=== PATIENT | male | born 1940 | race Caucasian/White ===

== ENCOUNTER 2023-04-28 11:50 | Outpatient (OUT) | payer OTHER, SELFPAY ==
[2023-04-28 12:45] LABS: Influenza Virus A Antigen Negative; Influenza Virus B Antigen Negative; Internal Control Within Normal Limits; Respiratory Syncytial Virus Not Detected (NOT DETECTE); SARS-CoV-2 Ag NEGATIVE (NEGATIVE)
[2023-04-28 14:59] LABS: SARS-CoV-2 NAA NOT DETECTED (NOT DETECTE)
== END 2023-04-28 11:51 | disposition home or self-care (01) ==
LOC: LAB 11:53
PROVIDERS: PCP Internal Medicine; Visit Provider Internal Medicine
DX: R05.9 Cough, unspecified (principal)
CPT/HCPCS: 87420; 87635; 87804; 87811; U0003

== ENCOUNTER 2024-01-28 12:53 | Outpatient (RCR) | payer OTHER, SELFPAY | END 2024-02-19 13:50 | disposition home or self-care (01) | LOC: PT 12:53 | PROVIDERS: PCP Internal Medicine; Visit Provider Nurse Practitioner Family | DX: M51.36 Other intervertebral disc degeneration, lumbar region (principal) | CPT/HCPCS: 97110; 97161 ==

== ENCOUNTER 2024-06-11 12:54 | Outpatient (OUT) | payer MEDICARE, SELFPAY ==
--- NOTE | 2024-06-11 12:57 | XR_ITS ---
[address] [address] Patient Name: MAURICIO QUIÑONEZ MRN: [id number] date: 1940 Sex: M Assigned Patient Location: [facility] Current Patient Location: Accession/Order Number: [id number] Exam Date: 06/11/2024 13:05 Report Date: 06/12/2024 09:27 At the request of: LINDSEY DUARTE Procedure: XR DEXA axial skeleton EXAMINATION: XR DEXA axial skeleton HISTORY: Osteopenia Of Lumbar Spine COMPARISON: DEXA bone densitometry 05/17/2015 TECHNIQUE: Dual-energy X-ray absorptiometry (DXA) was performed. FINDINGS: SPINE ANALYSIS: Average bone mineral density is 1.323 g/cm2. T-score (standard deviation relative to young adult mean): 0.7 . +8.0% change since prior study. HIP ANALYSIS: Lowest bone mineral density is within the right femoral neck, 0.775 g/cm2. T-score (standard deviation relative to young adult mean): -1.6% change since prior study. . XR/XR DEXA axial skeleton IMPRESSION: World Health Organization Classification: Osteopenia - Moderate Fracture Risk FRAX: Cannot be calculated. Pharmacologic treatment recommendations * No uniform recommendation applies to all patients. Management plans must be individualized. * Consider initiating pharmacologic treatment in postmenopausal women and men >= 50 years of age who have the following: Primary fracture prevention: * T-score <= - 2.5 at the femoral neck, total hip, lumbar spine, 33% radius (some uncertainty with existing data) by DXA. * Low bone mass (osteopenia: T-score between - 1.0 and - 2.5) at the femoral neck or total hip by DXA with a 10-year hip fracture risk >= 3% or a 10-year major osteoporosis-related fracture risk >= 20% (i.e., clinical vertebral, hip, forearm, or proximal humerus) based on the [place]-adapted FRAXregistered model. Secondary fracture prevention: * Fracture of the hip or vertebra regardless of BMD [4, 5]. * Fracture of proximal humerus, pelvis, or distal forearm in persons with low bone mass (osteopenia: T-score between - 1.0 and - 2.5). The decision to treat should be individualized in persons with a fracture of the proximal humerus, pelvis, or distal forearm who do not have osteopenia or low BMD [12, 13]. Eliceo MS, Gladys SL, Veronica KL, Mary EM, Huma KG, AJ, Sandy ES. The clinician's guide to prevention and treatment of osteoporosis. Osteoporos Int. 2021;33(10):1071-3552. doi: 10.1007/w99648-787-72540-a. Epub 2021Dec 13. Erratum in: Osteoporos Int. 2021Mar 14;: PMID: [id number]; PMCID: [id number]. Electronically authenticated by: SHERMAN NOGUERA Date: 06/12/2024 09:27
--- OUTSIDE RECORDS SUMMARY | 2024-06-11 12:57 | XMS_ITS | CCD ---
Author Organization [facility] Care Team Providers Care Business Risk Consultant Name Role Phone Buzz Magana II Primary Care Provider [phone] BUZZ MAGANA Primary Care Physician [phone] DR BUZZ MAGANA Admitting Unavailable FELICIA, DR PORTILLO Attending Unavailable FELICIA, DR PORTILLO Primary Care Unavailable FELICIA, DR PORTILLO Consulting Unavailable MAGANA, DR PORTILLO Admitting Unavailable MAGANA, DR PORTILLO Attending Unavailable MAGANA, DR PORTILLO Primary Care Unavailable FELICIA, DR PORTILLO Consulting Unavailable ZIEBER, DR SHERMAN Bee Consulting Unavailable FELICIA, DR PORTILLO Admitting Unavailable FELICIA, DR PORTILLO Attending Unavailable MAGANA, DR PORTILLO Primary Care Unavailable MAGANA, DR PORTILLO Consulting Unavailable RODRIGUEZ, ASHLEY Consulting Unavailable TrujilloAudra grey Unavailable YANELI BRAGG Attending Unavailable FELTER, YANELI A Attending Unavailable WILLAM, JAYLEN Attending Unavailable FELTER, YANELI A Attending Unavailable FELTER, YANELI A Attending Unavailable WILLAM, JAYLEN Attending Unavailable MAYCO, DONAL Attending Unavailable WILLAM, JAYLEN Referring Unavailable FELTER, YANELI A Attending Unavailable MAGANA, BUZZ Castro Attending Unavailable FELTER, YANELI A Attending Unavailable FELTER, YANELI A Attending Unavailable WILLAM, JAYLEN Attending Unavailable WILLAM, JAYLEN Attending Unavailable WILLAM, JAYLEN Referring Unavailable FELTER, YANELI A Attending Unavailable MAYCO, DONAL Attending Unavailable WILLAM, JAYLEN Referring Unavailable MAGANA, BUZZ Castro Attending Unavailable KINJAL PEREIRA Attending Unavailable Allergies Allergy Classification Reported Allergen(s) Allergy Type Date of Onset Reaction(s) Facility Anti-Epileptic Agents (1 source) carBAMazepine Drug Allergy 3 Other: See Comments [facility] Opioid Agonists (1 source) Codeine Drug Allergy 3 GI Upset [facility] (9 sources) Codeine; Translations: [codeine] Drug Allergy 4 Stomach ache (finding) [facility] (1 source) Codeine Drug Allergy 3 [facility] (1 source) Acetaminophen Drug Allergy 4 Unknown Reaction [facility] (1 source) carBAMazepine Drug Allergy 4 Rash [facility] (1 source) oxyCODONE Drug Allergy 4 Unknown Reaction [facility] Medications Current Medications Medication Drug Class(es) Dates Sig (Normalized) Sig (Original) amitriptyline hydrochloride 25 mg oral tablet (9 sources) Tricyclic Antidepressant Start: 01-30-2021 take 25 mg by mouth once daily at bedtime amitriptyline 25 mg, Oral, Once a day (at bedtime), Refills(s) 0 Start Date: 01/30/21 Status: Ordered Start: 01-30-2021 amitriptyline Oral, Once a day (at bedtime), Refills(s) 0 Start Date: 01/30/21 Status: Ordered Start: 03-06-2020 take 75 mg by mouth once daily at bedtime Amitriptyline Active 75 MG PO Daily at bedtime March 06, 2020 12:00am Start: 03-22-2013 take 3 tablets by [facility] once daily at bedtime amitriptyline 25 mg tablet Take 75 mg by mouth daily at bedtime. 0 03/22/2013 Active Comment on above: Take 75 mg by mouth daily at bedtime. amoxicillin 875 mg / clavulanate 125 mg oral tablet (1 source) Penicillin-class Antibacterial Start: 4 take 1 tablet by mouth every twelve hours Amoxicillin-Pot Clavulanate Active 1 TAB PO Every 12 hours 06 06May 21, 2024 12:00am aspirin 81 mg delayed release oral tablet (3 sources) Platelet Aggregation Inhibitor, Nonsteroidal Anti-inflammatory Drug Start: 1 Aspirin (Eleni Low Dose Aspirin) 81 mg Tablet,Delayed Release (Dr/Ec) Active 81 MG PO Daily February 27, 2021 12:00am citalopram 20 mg oral tablet (9 sources) Serotonin Reuptake Inhibitor Start: 1 citalopram Oral, Daily, Refills(s) 0 Start Date: 01/30/21 Status: Ordered Start: 03-22-2013 take 20 mg by mouth once daily citalopram 20 mg, Oral, Daily, Refills(s) 0 Start Date: 01/30/21 Status: Ordered Comment on above: Take 1 tablet by [facility] once daily. doxycycline monohydrate 100 mg oral capsule (1 source) Tetracycline-cla ss Drug Start: 08-29-2023 take 1 capsule by mouth every twelve hours Doxycycline Monohydrate 100 MG 1 capsule Orally every 12 hrs for 10 days Aug, Active gabapentin 100 mg oral capsule (5 sources) Anti-epileptic Agent Start: 02-27-2021 gabapentin 100 mg Cap 100 mg = 1 cap(s), BID Start Date: 06/03/23 Status: Ordered take 1 capsule by mo [facility] every twenty-four hours Gabapentin 100 MG 1 capsule Orally Once a day Active Keppra (9 sources) Start: 01-30-2021 Keppra 500 mg, BID, Refills(s) 0 Start Date: 01/30/21 Status: Ordered Start: 01-30-2021 Keppra BID, Re fills(s) 0 Start Date: 01/30/21 Status: Ordered Start: 03-06-2020 take 750 mg by mouth twice daily Levetiracetam Active 750 MG PO Twice daily March 06, 2020 12:00am Start: 03-22-2013 take 1 tablet by [facility] twice daily levETIRAcetam (KEPPRA) 500 mg tablet Take 1 tablet by mouth twice daily. 0 03/22/2013 Active take 1 tablet by [facility] every twelve hours levETIRAcetam 500 MG 1 tablet Orally every 12 hrs Active Comment on above: Take 1 tablet by [facility] twice daily. levothyroxine (9 sources) l-Thyroxine Start: 01-30-2021 levothyroxine 50 mcg, Daily, Refills(s) 0 Start Date: 01/30/21 Status: Ordered Start: 01-30-2021 levothyroxine Daily, Refills(s) 0 Start Date: 01/30/21 Status: Ordered Start: 03-22-2013 take 25 ug by mouth once daily Levothyroxine Active 25 MCG PO Daily March 06, 2020 12:00am take 1 tablet by [facility] th once daily in the morning Levothyroxine Sodium 25 MCG 1 tablet in the morning on an empty stomach Orally Once a day Active Comment on above: Take 1 tablet by [facility] th once daily. meloxicam 15 mg oral tablet (8 sources) Nonsteroidal Anti-inflammatory Drug Start: 02-27-2021 take 1 mg by mouth once daily meloxicam 15 mg oral tablet mg tab(s), Oral, Daily, Refills(s) 0 Start Date: 02/19/22 Status: Ordered Omeprazole (4 sources) Proton Pump Inhibitor Start: 01-30-2021 omeprazole Oral, Daily, Refills(s) 0 Start Date: 01/30/21 Status: Ordered Start: 03-22-2013 take 1 capsule by mo [facility] once daily Omeprazole (PRILOSEC) 40 mg capsule Take 1 capsule by mouth once daily. 0 03/22/2013 Active Comment on above: Take 1 capsule by mo [facility] once daily. simvastatin 20 mg oral tablet (9 sources) HMG-CoA Reductase Inhibitor Start: 01-30-2021 simvastatin Oral, Refills(s) 0 Start Date: 01/30/21 Status: Ordered Start: 03-22-2013 simvastatin 20 mg, Oral, Refills(s) 0 Start Date: 01/30/21 Status: Ordered Comment on above: Take 1 tablet by [facility] daily at bedtime. tamsulosin hydrochloride 0.4 mg oral capsule (5 sources) alpha-Adrenergic Nellie Start: take 1 capsule by mouth twice daily tamsulosin 0.4 mg Cap 0.4 mg = 1 cap(s), Oral, BID, # 60 cap(s), Refills(s) 11, Pharmacy: [id number], 183, cm, 06/03/23 9:59:00 EDT, Height/Length Dosing, 81.1, kg, 06/03/23 9:59:00 EDT, Weight Dosing Start Date: 06/03/23 Status: Ordered Start: 05-29-2022 End: 05-24-2023 take 1 capsule by mouth twice daily tamsulosin 0.4 mg Cap 0.4 mg = 1 cap(s), Oral, BID, X 90 day(s), # 180 cap(s), Refills(s) 3, Pharmacy: [id number], 183, cm, 05/29/22 14:39:00 EDT, Height/Length Dosing, 77.1, kg, 05/29/22 14:39:00 EDT, Weight Dosing Start Date: 05/29/22 Stop Date: 05/24/23 Status: Ordered Start: 02-19-2022 take 1 capsule by mo [facility] once daily Flomax 0.4 mg Cap 0.4 mg = 1 cap(s), Oral, Daily, # 30 cap(s), Refills(s) 1, Pharmacy: [id number], 183, cm, 01/30/21 14:17:00 EDT, Height/Length Dosing, 77.1, kg, 01/30/21 14:17:00 EDT, Weight Dosing Start Date: 02/19/22 Status: Ordered tiZANidine 2 mg oral tablet (6 sources) [facility] alpha-2 Adrenergic Agonist Start: 02-19-2022 take 1 mg by mouth every eight hours tiZANidine 2 mg Tab mg tab(s), Oral, q8hr, Refills(s) 0 Start Date: 02/19/22 Status: Ordered Start: 02-27-2021 tiZANidine 2 m g Tab 2 mg = 1 tab(s), BID Start Date: 06/03/23 Status: Ordered take 1 tablet by [facility] every eight hours tiZANidine HCl 4 MG 1 tablet as needed Orally Three times a day Active traMADol hydrochloride 50 mg oral tablet (1 source) Opioid Agonist Start: 03-05-2021 take 0.5-1 tablets by mouth every six hours as needed for pain Tramadol (Ultram) 50 mg tablet Active 50 MG PO Q6H 30 7 March 05, 2021 12:00am 1/2 - 1 tab po q 6 hours prn pain triamcinolone acetonide 0.055 mg/actuat metered dose nasal spray (1 source) Corticosteroid Start: 08-29-2023 take 1 spray(s) nasal route once daily Nasacort Allergy 24HR 55 MCG/ACT 1 spray in each nostril Nasally Once a day for 30 days Aug, Active Completed/Discontinued Medications Medication Drug Class(es) Dates Sig (Normalized) Sig (Original) azithromycin 250 mg oral tablet (2 sources) Macrolide Antimicrobial Start: 04-29-2023 Azithromycin 250 MG 2 tablet on the first day, then 1 tablet daily for 4 days Orally Once a day for 5 day(s) Apr, Not-Taking/PRN diclofenac sodium 75 mg delayed release oral tablet (1 source) Nonsteroidal Anti-inflammatory Drug Start: 03-06-2020 End: 02-27-2021 Diclofenac Sodium Discontinued 75 MG PO As Directed March 06, 2020 12:00am February 27, 2021 11:35am predniSONE 20 mg oral tablet (2 sources) Start: 04-29-2023 take 1 tablet by mouth every twelve hours prednisone 20 MG 1 tablet Orally BID for 5 Apr, Not-Taking/PRN Problems Active Problems Problem Classification Problem Date Documented Da te Episodic/Chronic Abdominal hernia (1 source) Inguinal hernia; Translations: [Unilateral inguinal hernia, without obstruction or gangrene, not specified as recurrent] 07-30-2023 Episodic Epilepsy; convulsions (5 sources) Epilepsy 01-30-2021 Chronic Headache; including migraine (5 sources) Headache 01-30-2021 Episodic Heart valve disorders (10 sources) Heart murmur; Translations: [Cardiac murmur, unspecified] Onset: 10-03-2022 01-30-2021 Episodic Hyperplasia of prostate (10 sources) Benign prostatic hypertrophy without outflow obstruction; Translations: [Benign prostatic hyperplasia without lower urinary tract symptoms] Onset: 02-19-2022 Chronic Mood disorders (5 sources) Depressive disorder 01-30-2021 Chronic Other gastrointestinal disorders (2 sources) Esophageal dysphagia; Translations: [Dysphagia, unspecified] Episodic Other gastrointestinal disorders (1 source) Dysphagia; Translations: [Dysphagia, unspecified] 07-30-2023 Episodic Other injuries and conditions due to external causes (5 sources) Injury of head 01-30-2021 Episodic Other male genital disorders (1 source) Disorder of male genital organ; Translations: [Other specified disorders of the male genital organs] Onset: 06-08-2024 Episodic Other male genital disorders (1 source) Swelling of scrotum 06-08-2024 Episodic Other upper respiratory infections (4 sources) Acute sinusitis, unspecified; Translations: [Acute recurrent maxillary sinusitis] Episodic Pancreatic disorders (not diabetes) (1 source) Disorder of pancreas; Translations: [Disease of pancreas, unspecified] Episodic Residual codes; unclassified (5 sources) Edema, unspecified; Translations: [EDEMA UNSPECIFIED] Onset: 10-07-2022 Episodic Past or Other Problems Problem Classification Problem Date Documented Da te Episodic/Chronic Other non-traumatic joint disorders (4 sources) Pain in left knee; Translations: [PAIN IN LEFT KNEE] Onset: 12-12-2021 Episodic Results Test Name Value Interpretation Reference Range Facil ity Ambulatory Visit Summaryon 1 Ambulatory Visit Summary Ambulatory Visit Summary SANDEEP MERCER :1940 Visit Date:06/08/2024 Ambulatory Visit Instructions Your Diagnosis BPH with obstruction/lower urinary tract symptoms Scrotal swelling Tests Performed US Scrotum (Contents) -- Results Pending -- Please visit your patient portal for your results or contact your primary care physician. Your Care Team Attending Physician - KINJAL PEREIRA PA-C Primary Care Physician - BUZZ MAGANA MD This Is Your Medications List Contact prescribing physician if questions or concerns amitriptyline citalopram gabapentin (gabapentin 100 mg Cap) levetiracetam (Keppra) levothyroxine meloxicam (meloxicam 15 mg oral tablet) simvastatin tamsulosin (tamsulosin 0.4 mg Cap) tizanidine (tiZANidine 2 mg Tab) Procedures Performed Uvula operation (2009), Appendectomy (1953), Tonsillectomy (1947), Colonoscopy. Discharge Vitals Heart Rate (Peripheral) 81 Blood Pressure 132/68 Height 183 cm Height 72 in Weight 81.1 kg Weight 178.42 lb BMI 24.22 What to do next You Need to Schedule the Following Appointments Follow Up with MARIA R GORMAN, LIBERTAD GIPSON When: Comments: sched cysto, TRUS, and scrotal US Where: Medications What How Much When Instructions Unchanged amitriptyline 25 Milligram By Mouth Once a day (at bedtime) Contact prescribing physician if questions or concerns Unchanged citalopram 20 Milligram By Mouth Every day Contact prescribing physician if questions or concerns Unchanged gabapentin (gabapentin 100 mg Cap) 1 Capsules 2 times a day Contact prescribing physician if questions or concerns Unchanged levetiracetam (Keppra) 500 Milligram 2 times a day Contact prescribing physician if questions or concerns Unchanged levothyroxine 50 Microgram Every day Contact prescribing physician if questions or concerns Unchanged meloxicam (meloxicam 15 mg oral tablet) By Mouth Every day Contact prescribing physician if questions or concerns Unchanged simvastatin 20 Milligram By Mouth Contact prescribing physician if questions or concerns Unchanged tamsulosin (tamsulosin 0.4 mg Cap) 1 Capsules By Mouth 2 times a day Contact prescribing physician if questions or concerns Unchanged tizanidine (tiZANidine 2 mg Tab) 1 Tablets 2 times a day Contact prescribing physician if questions or concerns Allergies codeine (Stomach pain) Problems Ongoing - Any problem that you are currently receiving treatment for. BPH with obstruction/lower urinary tract symptoms Depression Epilepsy Head injury Headache Heart murmur Scrotal swelling Patient Survey You may receive a survey via text or e-mail asking about your office visit. Please share your experience with us by completing your survey. We appreciate your feedback and thank you for choosing us for your care. Education Materials Transrectal Ultrasound A transrectal ultrasound is a procedure that uses sound waves to create images of the prostate gland and nearby tissues. For this procedure, an ultrasound probe is placed in the rectum. The probe sends sound waves through the wall of the rectum into the prostate gland. The prostate is a walnut-sized gland that is located below the bladder and in front of the rectum. The images show the size and shape of the prostate gland and nearby structures. You may need this test if you have: ? Trouble urinating. ? Trouble getting your partner (infertility). ? An abnormal result from a prostate screening exam. Tell a health care provider about: ? Any allergies you have. ? All medicines you are taking, including vitamins, herbs, eye drops, creams, and vmuk-tig-tzotopv medicines. ? Any bleeding problems you have. ? Any surgeries you have had. ? Any medical conditions you have. ? Any prostate infections you have had. What are the risks? Generally, this is a safe procedure. However, problems may occur, including: ? Discomfort during the procedure. ? Blood in your urine or sperm after the procedure. This may occur if a sample of tissue is taken to look at under a microscope (biopsy) during the procedure. What happens before the procedure? ? Your health care provider may instruct you to use an enema 1?4 hours before the procedure. Follow instructions from your health care provider about how to do the enema. ? Ask your health care provider about: ? Changing or stopping your regular medicines. This is especially important if you are taking diabetes medicines or blood thinners. ? Taking medicines such as aspirin and ibuprofen. These medicines can thin your blood. Do not take these medicines unless your health care provider tells you to take them. ? Taking odvo-jhl-iwxsyxg medicines, vitamins, herbs, and supplements. What happens during the procedure? ? You will be asked to lie down on your left side on an exam table. ? You will bend your k (more content not included)... Normal [facility] Urology Office/Clinic Noteon 06-08-2024 Urology Office/Clinic Note Urology Office/Clinic Note Chief Complaint 1yr f/u HPI Staff 83 yr old male here for 1 yr f/u DX: BPH *Flomax 0.4mg BID therapy Pt could not give urine sample today Dysuria: denies Incomplete bladder emptying: Hematuria: denies Frequency: about 3x per day Urgency: denies Nocturia: denies Stream: slow weak stream, states started 8-9 months ago. Leaking: denies Post void dripping: occasionally Wearing pads/ Depends: denies Urge incontinence: denies Stress incontinence: denies Incontinence without Sensory Awareness: Abdominal pain: denies Flank pain: denies History of Present Illness staff HPI reviewed and agree. Review of Systems PHQ Score Initial Depression Screen Score: 0 SCORE no fever, chills, malaise, myalgia. no rash/lesions. no chest pain, palpitations, or SOB. no abdominal pain, nausea, vomiting. no unilateral calf swelling, redness, pain Physical Exam Vitals & Measurements HR: 81(Peripheral) BP: 132/68 HT: 72 in HT: 183 cm WT: 81.1 kg WT: 178.42 lb BMI: 24.22 General: nontoxic, NAD Mouth: moist mucosa Lungs: normal respiratory effort Cardio: regular rate, good distal perfusion Abdomen: nondistended, no suprapubic distention or tenderness, no CVA tenderness Neurologic: Grossly normal Skin: No rashes or suspicious lesions Assessment/Plan Prior DLS pt ELSIE 3. 1. BPH with obstruction/lower urinary tract symptoms (N40.1: Benign prostatic hyperplasia with lower urinary tract symptoms) IPSS 8 (4). No sample provided for UA today. Taking Tamsulosin 0.4mg bid. Reports this medication helped initially at increased dosage but has had worsening sxs over the last 9 mos. Discussed options including addition of Finasteride vs BROWN procedures. Pt does not want to add another medication, in fact he'd prefer to stop the Flomax if possible. Explained BROWN procedure would allow this. Risks/benefits/possibl e SEs discussed. Educational pamphlets provided. Advised pt a cystoscopy/TRUS would need done prior to operative intervention determine candidacy. Pt wishes to proceed with this. -Cont Tamsulosin 0.4mg bid for now -Submit urine sample prior to cystoscopy to ensure no infection. Specimen cup provided. -Will schedule cystoscopy and TRUS. The risks and benefits for cystoscopy have been discussed. The risks include bleeding, infection, and irritation of the bladder and urinary channel, among others. The patient, after being informed of procedural details and after questions have been answered, wishes to proceed. Full informed consent has been obtained. Will order Local anesthesia. 2. Scrotal swelling (N50.89: Other specified disorders of the male genital organs) As he was leaving the office today and visit w provider was already complete, pt mentioned to staff that he had bothersome scrotal swelling. Stated it has been present for years but is becoming more painful. Per [facility] records, pt had a spermatocele. Wishes to have an ultrasound done to further evaluate. Will order and can examine pt/discuss options in greater detail at next ov. -Schedule scrotal US. Can have them do TRUS at same time. Follow-up With When Contact Information MARIA R GORMAN, BRANDAN, LIBERTAD Additional Instructions: sched cysto, TRUS, and scrotal US Patient Education Transrectal Ultrasound Transurethral Resection of the Prostate Cystoscopy Documentation recorded by the letha Magana accurately reflects the services(s) I performed and decisions made by me. Authenticated by Kinjal Pereira PA-C on 06/08/2024 09:58:09. Natalia Muller, personally scribed for Kinjal Pereira PA-C on 06/08/2024 09:38:48. . Problem List/Past Medical History Ongoing BPH with obstruction/lower urinary tract symptoms Depression Epilepsy Head injury Headache Heart murmur Scrotal swelling Historical No qualifying data Procedure/Surgical History Uvula operation (2009), Appendectomy (1953), Tonsillectomy (1948), Colonoscopy. Medications amitriptyline, 25 mg, Oral, Once a day (at bedtime) citalopram, 20 mg, Oral, Daily gabapentin 100 mg Cap, 100 mg= 1 cap(s), BID Keppra, 500 mg, BID levothyroxine, 50 mcg, Daily meloxicam 15 mg oral tablet, Oral, Daily simvastatin, 20 mg, Oral tamsulosin 0.4 mg Cap, 0.4 mg= 1 cap(s), Oral, BID, 11 refills tiZANidine 2 mg Tab, 2 mg= 1 tab(s), BID Allergies codeine (Stomach pain) Social History Tobacco Never (less than 100 in lifetime) Tobacco Use:. Never Smokeless Tobacco Use:., 06/08/2024 Family History Cancer of stomach: Mother. Diabetes mellitus: Mother. Immunizations Vaccine Date Status diphtheria/pertussis, acel/tetanus adult 02/09/2024 Recorded influenza virus vaccine, inactivated 07/16/2023 Recorded SARS-CoV-2 (COVID-19) [id number] 06/04/2022 Recorded influenza virus vaccine, inactivated 05/29/2022 Recorded influenza virus vaccine, inactivated 07/23/2021 Recorded SA (more content not included)... Normal [facility] Comment on above: Result Comment: Elec tronically Signed By: KINJAL PEREIRA PA-C\.br\Date and Time Signed: 06/08/24 09:58 EDT\.br\Electronically Co-Signed By: Natalia Magana\.br\Date and Time Co-Signed: 06/08/24 09:39 EDT ECHOCARDIO M/2D COMPLETEon 0 10-15-2022 ECHOCARDIO M/2D COMPLETE Patient Name Site Name SANDEEP MERCER [facility] Account No Medical Record Number Age Sex Date Time [id number] [facility]:[id number] M 10/15/2022 14:20 At the Request Of BUZZ MAGANA ECHOCARDIOGRAM REPORT PROCEDURE: CARDIO PULMONARY ECHOCARDIO M/2D COMP INDICATIONS: Edema, cardiac murmur, hypertension COMPARISON: None. DESCRIPTION: COMPLETE ECHOCARDIOGRAM Real-time transthoracic echocardiography with 2D, M-mode, spectral and color flow Doppler performed. QUALITY: Technical quality was good. LEFT VENTRICLE: Normal chamber size. Proximal septal hypertrophy (sigmoid septum). Normal systolic function. LV EF: Normal left ventricular ejection fraction, (55%). DIASTOLIC: Normal diastolic function. ATRIAL SEPTUM: Visually appears intact. LEFT ATRIUM: Normal chamber size. RIGHT ATRIUM: Normal chamber size. RIGHT VENTRICLE: Normal chamber size. Normal right ventricular systolic function. TRICUSPID VALVE: Normal mobility and thickness. No stenosis with no regurgitation. MITRAL VALVE: Mildly thickened with normal mobility. No evidence of mitral valve stenosis. There is no mitral annular calcification. Trivial mitral regurgitation. AORTIC VALVE: Normal trileaflet appearance. Mildly calcified aortic valve. Mildly diminished mobility. Doppler velocity suggest no significant aortic valve stenosis. No aortic regurgitation. AORTIC ROOT: Normal diameter and appearance. PULMONIC VALVE: Normal thickness and mobility. No stenosis. No regurgitation. PERICARDIUM: No evidence of pericardial effusion. IVC: Collapses with inspirations. PLEURA: CONCLUSION: 1. Normal ventricular systolic function. LVEF is 55%. 2. No significant valvular dysfunction. 3. Mildly calcified aortic valve with no significant stenosis. 4. No pericardial effusion. Adult Echocardiography Procedure Report Left Ventricle LVEDD (3.7 - 5.6 cm): 4.47 cm LVESD (2.2 - 4.0 cm): 2.75 cm LVIVS thickness (0.6 - 1.2 cm): 1.40 cm LVPW thickness (0.5 - 1.0 cm): 0.80 cm e': 0.10 m/s E - e': 5.89 LVOT Max Gradient: 1.83 mm[Hg] Peak Velocity (LVOT): 0.68 m/s Mean Velocity (LVOT): 0.47 m/s LVOT Diameter 2.02 cm Left Ventricular Ejection Fraction: 55% Left Atrium LA Volume Index (2D A2C): 34.64 ml, 34.64 ml Left Atrium Systolic Dimension: 3.72 cm Mitral Valve MV E to A Ratio: 0.63 Mitral Valve A-Wave Peak Velocity: 0.93 m/s Mitral Valve E-Wave Peak Velocity: 0.59 m/s Right Ventricle Aorta AO Root Diam: 3.41 cm Aortic Valve AoV Area (Peak Diego): 1.53 cm2, 1.53 cm2 AoV Area (VTI): 1.80 cm2, 1.80 cm2 Peak Velocity(Antegrade Flow): 1.42 m/s Peak Gradient(Antegrade Flow): 8.02 mm[Hg] Mean Velocity(Antegrade Flow): 1.04 m/s Mean Gradient(Antegrade Flow): 4.77 mm[Hg] Velocity Time Integral: 23.15 cm Tricuspid Valve Peak Velocity: 0.39 m/s Pulmonic Valve Peak Velocity: 1.05 m/s, 1.06 m/s Peak Gradient: 4.43 mm[Hg], 4.51 mm[Hg] Right Atrium Right Atrium Systolic Pressure: 18.55 ml, 18.55 ml Dictated by: Mervin Sandhu M.D. on 10/15/2022 at 19:25 Approved by: Mervin Sandhu M.D. on 10/15/2022 at 19:[address] [facility] XR CHEST 2 Von 10-04-2022 XR CHEST 2 V EXAMINATION: XR CHES T 2 V HISTORY: Heart murmur , acute chest pain, palpitations COMPARISON: XR chest 01/27/2020 FINDINGS: LUNGS: Stable small calcified granuloma within lateral left midlung. No acute infiltrates. Mild chronic interstitial changes. VASCULATURE: No increased pulmonary vasculature. PLEURA: No pneumothorax, effusion, or pleural thickening. CARDIAC: No cardiomegaly or cardiac silhouette abnormality. MEDIASTINUM: No visible mass or adenopathy. BONES: No fracture or visible bone lesion. OTHER: Negative. IMPRESSION: 1. No acute cardiopulmonary process. Stable chest. Electronically authenticated by: SHERMAN NOGUERA Date: 2022-10-04 09:28 Normal [facility] XR KNEE LT 3Von 12-12-2021 XR KNEE LT 3V EXAM: XR KNEE LT 3V HISTORY: Pain of left knee joint Knee examination Findings: There is narrowing of the medial compartment of the knee, as well as the patellofemoral joint. Osteophyte formation is seen. No acute fracture is identified. No focal lesions are identified. IMPRESSION: Degenerative changes are noted at the knee. No fracture, is seen. If there is high index of suspicion, consider MRI. Electronically authenticated by: ASHLEY RODRIGUEZ Date: 2021-12-12 14:[address] [facility] Dmitry 03-05-2021 L -- ---- Specimen: [id number] Received: 03/05/21 Status: DACIA Beatty Num: [id number] Spec Type: Surgical Subm Dr: Anthony Law DO Tissues: A Lipoma (CORD LIPOMA) Procedures: HE Stain, Gross/Micro L3, Gross/Micro L2 ---- Patient Age/Sex Location Account Attending Physician ---- Sandeep Mercer 80/M [place] [id number] Anthony Law DO ---- SPEC NUM: [id number] RECD: 03/05/21 STATUS: ANDREWReji BEATTY NUM: [id number] ROBERT: 03/05/21- [facility] DR: Anthony Law DO ENTERED: 03/05/21-[address] [facility] [address]: SPEC TYPE: Surgical DEPT: S ENTERED BY: [id number] RECV BY: [id number] ORDERED: HE Stain, Gross/Micro L3, Gross/Micro L2 ORDERED: HE Stain, Gross/Micro L3, Gross/Micro L2 Pathological Diagnosis Cord lipoma, left inguinal hernia, excision: - Mature adipose tissue, consistent with cord lipoma. Clinical Information Left inguinal hernia Gross Description Received in formalin labeled with the patient's name, number and cord lipoma is a 7.5 x 3 x 1 cm yellow lobulated adipose tissue fragment, partially surfaced by a thin bingham-pink edematous membrane. Sectioning reveals yellow-red, lobulated cut surfaces with no masses or lesions identified. Chief Engineer Production sections are submitted in one cassette labeled A1. (SM/YJ) Microscopic Description One glass slide with H E stained material has been examined. The microscopic findings support the above pathologic diagnosis. CPT Codes 03111 ---- ---- Specimen: [id number] Received: 03/05/21 Status: DACIA Beatty Num: [id number] Spec Type: Surgical Subm Dr: Anthony Law DO Tissues: A Lipoma (CORD LIPOMA) Procedures: HE Stain, Gross/Micro L3, Gross/Micro L2 ---- Patient: Sandeep Mercer [id number] (Continued) ---- Signed (signature on file) Zara Rangel MD 03/06/21 1124 [facility] Basic Metabolic Panelon 02-15 Calcium [Mass/Vol] 9.5 mg/dL Normal 8.2-10.2 [facility] Comment on above: Result Comment: PERF ORMED BY: [place] [address] PATHOLOGIST EDITOR PUBLICATIONS ASHA URIBE M.D. Performed By: #### C BC, BMP #### [facility] [address] Chloride [Moles/Vol] 105 mmol/L Normal 95-114 [facility] Comment on above: Performed By: #### C BC, BMP #### [facility] [address] [place] [address] [place] CO2 [Moles/Vol] 28.1 mmol/L Normal 22.0-30.0 [facility] Comment on above: Performed By: #### C BC, BMP #### [facility] [address] [place] [address] [place] Creatinine [Mass/Vol] 1.48 mg/dL High 0.64-1.27 [facility] Comment on above: Performed By: #### C BC, BMP #### [facility] [address] Estimated GFR ( [place] 55 Normal [facility] Comment on above: Result Comment: GFR estimated reference range: According to KDOQI guidelines, <60 ml/min/1.73m2 is sufficient to diagnose a patient with chronic kidney disease. Performed By: #### C BC, BMP #### [address] Estimated GFR (Non- Am 46 Normal [facility] Comment on above: Performed By: #### C BC, BMP #### [address] Glucose [Mass/Vol] 96 mg/dL Normal 70-100 [facility] Comment on above: Result Comment: [place] Glucose Reference Range is dependent on time and content of last meal. Glucose of more than 200 mg/dL in a nonstressed, ambulatory subject supports the diagnosis of Diabetes Mellitus. ADA recommended reference range Performed By: #### C BC, BMP #### [address] Potassium [Moles/Vol] 4.9 mmol/L Normal 3.5-5.1 [facility] Comment on above: Performed By: #### C BC, BMP #### [address] Sodium [Moles/Vol] 143 mmol/L Normal 136-146 [facility] Comment on above: Performed By: #### C BC, BMP #### [address] Urea nitrogen [Mass/Vol] 14 mg/dL Normal 9-23 [facility] Comment on above: Performed By: #### C BC, BMP #### [address] Complete Blood Count Auto Di ffon 02-27-2021 Basophils (Bld) [#/Vol] 0.1 10*3/uL Normal 0.0-0.2 [facility] Comment on above: Result Comment: PERF ORMED BY: [place] [address] PATHOLOGIST EDITOR PUBLICATIONS ASHA URIBE M.D. Performed By: #### C BC, BMP #### [place] [address] [place] Basophils/100 WBC (Bld) 1.3 % Normal . [facility] Comment on above: Performed By: #### C BC, BMP #### [facility] [address] Eosinophils (Bld) [#/Vol] 0.0 10*3/uL Normal 0.0-0.45 [facility] Comment on above: Performed By: #### C BC, BMP #### [facility] [address] Eosinophils/100 WBC (Bld) 0.2 % Normal . [facility] Comment on above: Performed By: #### C BC, BMP #### [address] Erythrocyte distribution width (RBC) [Ratio] 13.5 % Normal 12.0-14.8 [facility] Comment on above: Performed By: #### C BC, BMP #### [address] Hematocrit (Bld) [Volume fraction] 45.6 % Normal 38.8-50.0 [facility] Comment on above: Performed By: #### C BC, BMP #### [address] Hemoglobin (Bld) [Mass/Vol] 14.5 g/dL Normal 13.0-17.0 [facility] Comment on above: Performed By: #### C BC, BMP #### [address] Lymphocytes (Bld) [#/Vol] 1.6 10*3/uL Normal 1.00-4.8 [facility] Comment on above: Performed By: #### C BC, BMP #### [address] Lymphocytes/100 WBC (Bld) 26.0 % Normal . [facility] Comment on above: Performed By: #### C BC, BMP #### [address] MCH (RBC) [Entitic mass] 28.4 pg Normal 27.5-35.2 [facility] Comment on above: Performed By: #### C BC, BMP #### [facility] [address] MCV (RBC) [Entitic vol] 89.0 fL Normal 83.5-101 [facility] Comment on above: Performed By: #### C BC, BMP #### [facility] [address] Mean Corpuscular HGB Conc 31.9 g/dL Low 32.5-35.6 [facility] Comment on above: Performed By: #### C BC, BMP #### [address] Monocytes (Bld) [#/Vol] 0.6 10*3/uL Normal 0.0-0.8 [facility] Comment on above: Performed By: #### C BC, BMP #### [place] [address] [place] Monocytes/100 WBC (Bld) 9.9 % Normal . [facility] Comment on above: Performed By: #### C BC, BMP #### [place] [address] [place] Neutrophils (Bld) [#/Vol] 3.8 10*3/uL Normal 1.8-7.7 [facility] Comment on above: Performed By: #### C BC, BMP #### [place] [address] [place] Neutrophils/100 WBC (Bld) 62.6 % Normal . [facility] Comment on above: Performed By: #### C BC, BMP #### [facility] [address] [place] [address] [place] Nucleated RBC/100 WBC (Bld) [Ratio] 0.1 % Normal 0-0.5 [facility] Comment on above: Performed By: #### C BC, BMP #### [address] Platelet mean volume (Bld) [Entitic vol] 7.7 fL Normal 6.6-10.1 [facility] Comment on above: Performed By: #### C BC, BMP #### [facility] [address] Platelets (Bld) [#/Vol] 181 10*3/uL Normal 150-450 [facility] Comment on above: Performed By: #### C BC, BMP #### [facility] [address] RBC (Bld) [#/Vol] 5.12 10*6/uL Normal 3.90-5.60 [facility] Comment on above: Performed By: #### C BC, BMP #### [facility] [address] WBC (Bld) [#/Vol] 6.0 10*3/uL Normal 4.5-11.0 [facility] Comment on above: Performed By: #### C BC, BMP #### [facility] [address] ECG 12 lead ECGon 02-27-2021 ECG 12 lead ECG [facility] [place] [address] [place] [address] Electrocardiograph Report Signed Patient: Sandeep Mercer MR#: [id number] 8 : 1940 Acct:[id number] Age/Sex: 80 / M ADM Date: 02/27/21 Loc: Room: Type: [facility] Attending Dr: Anthony Law DO Ordering Provider: Anthony Law DO Date of Service: 02/27/21 ECG/ECG 12 lead ECG: surgery 03/05/21 Copies to: Test Reason : Blood Pressure : / mmHG Vent. Rate : 076 BPM Atrial Rate : 076 BPM P-R Int : 164 ms QRS Dur : 110 ms QT Int : 388 ms P-R-T Axes : 062 055 073 degrees QTc Int : 436 ms Normal sinus rhythm Normal ECG No previous ECGs available Confirmed by TOM TOMPKINS MD ([id number]) on 02/27/2021 5:11:06 PM Referred By: FELICIA LAW Electronically Signed By:TOM TOMPKINS MD Transcribed By: CHANTE Dictated By: Tom Tompkins MD 02/27/21 1108 Signed By: 02/27/21 1711 Normal [facility] Vital Signs Date Time Vital Sign Value Performing Clinician Facility 06-08-2024 08:56-0400 Blood Pressure Location KINJAL PEREIRA [facility] 06-08-2024 08:56-0400 Diastolic blood pressure 68 mm[Hg] KINJAL PEREIRA [facility] 06-08-2024 08:56-0400 Heart rate 81 /min KINJAL PEREIRA [facility] 06-08-2024 08:56-0400 Systolic blood pressure 132 mm[Hg] KINJAL PEREIRA [facility] 05-21-2024 15:18-0400 Body height 180.34 cm [facility] 05-21-2024 15:18-0400 Body mass index (BMI) [Ratio] 24.1 kg/m2 [facility] 05-21-2024 15:18-0400 Body temperature 97.8 [degF] [facility] 05-21-2024 15:18-0400 Body weight 78.47 kg [facility] 05-21-2024 15:18-0400 Diastolic blood pressure 70 mm[Hg] [facility] 05-21-2024 15:18-0400 Heart rate 89 /min [facility] 05-21-2024 15:18-0400 Respiratory rate 18 /min [facility] 05-21-2024 15:18-0400 SaO2% (BldA) [Mass fraction] 98 % [facility] 05-21-2024 15:18-0400 Systolic blood pressure 124 mm[Hg] [facility] 08-29-2023 13:30-0500 Body height 180.34 cm Audra Jones [facility] Other 08-29-2023 13:30-0500 Body mass index (BMI) [Ratio] 23.43 kg/m2 Audra Trujillo Other [facility] [facility] 08-29-2023 13:30-0500 Body temperature 96.4 [degF] Audra Trujillo Other [facility] 08-29-2023 13:30-0500 Body weight 76.2 kg Audra Trujillo Other [facility] [facility] Other 08-29-2023 13:30-0500 Diastolic blood pressure 86 mm[Hg] Audra Trujillo Other [facility] [facility] Other 08-29-2023 13:30-0500 Respiratory rate 18 /min Audra Trujillo Other [facility] [facility] Other 08-29-2023 13:30-0500 SaO2% (BldA) [Mass fraction] 96 % Audra Trujillo Other [facility] [facility] Other 08-29-2023 13:30-0500 Systolic blood pressure 143 mm[Hg] Audra Trujillo Other [facility] Other 04-29-2023 13:40-0400 Body height 180.34 cm Audra Trujillo Other [facility] [facility] Other 04-29-2023 13:40-0400 Body mass index (BMI) [Ratio] 23.57 kg/m2 Audra Trujillo Other [facility] [facility] Other 04-29-2023 13:40-0400 Body temperature 98.2 [degF] Audra Trujillo Other [facility] [facility] Other 04-29-2023 13:40-0400 Body weight 76.66 kg Audra Trujillo Other [facility] [facility] Other 04-29-2023 13:40-0400 Diastolic blood pressure 76 mm[Hg] Audra Trujillo Other [facility] [facility] Other 04-29-2023 13:40-0400 Respiratory rate 18 /min Audra Trujillo Other [facility] [facility] Other 04-29-2023 13:40-0400 SaO2% (BldA) [Mass fraction] 98 % Audra Trujillo Other [facility] Other 04-29-2023 13:40-0400 Systolic blood pressure 132 mm[Hg] Audra Turjillo Other [facility] [facility] Other 11-27-2022 13:41-0400 Blood Pressure Location KINJAL KELLI [facility] 11-27-2022 13:41-0400 Diastolic blood pressure 78 mm[Hg] KINJAL KELLI [facility] 11-27-2022 13:41-0400 Heart rate 88 /min KINJAL KELLI [facility] 11-27-2022 13:41-0400 Systolic blood pressure 145 mm[Hg] KINJAL KELLI [facility] 05-29-2022 14:37-0400 Blood Pressure Location KINJAL KELLI [facility] 05-29-2022 14:37-0400 Diastolic blood pressure 88 mm[Hg] KINJAL PEREIRA [facility] 05-29-2022 14:37-0400 Heart rate 75 /min KINJAL PEREIRA [facility] 05-29-2022 14:37-0400 Respiratory rate 16 /min KINJAL PEREIRA [facility] 05-29-2022 14:37-0400 Systolic blood pressure 148 mm[Hg] KINJAL PEREIRA [facility] Encounters Encounter Date Encounter Type Care Provider Facility Start: 06-08-2024 End: 06-08-2024 ambulatory KINJAL PEREIRA Facility:[facility] Start: 06-08-2024 End: 06-08-2024 Patient encounter procedure KINJAL PEREIRA [facility] Start: 05-21-2024 End: 05-21-2024 ambulatory [facility] Work Phone: Start: 05-21-2024 End: 05-21-2024 Patient encounter procedure [facility] Work Phone: Start: 05-04-2024 End: 05-04-2024 ambulatory DONAL MAO Not Available Start: 04-01-2024 End: 04-01-2024 ambulatory JAYLEN WILLAM Not Available Start: 03-30-2024 End: 03-30-2024 ambulatory JAYLEN WILLAM Not Available Start: 03-29-2024 End: 03-29-2024 ambulatory YANELI A FELTER Not Available Start: 02-24-2024 End: 02-24-2024 ambulatory YANELI A FELTER Not Available Start: 02-09-2024 End: 02-09-2024 ambulatory BUZZ MAGANA Not Available Start: 02-04-2024 End: 02-04-2024 ambulatory YANELI A FELTER Not Available Start: 02-03-2024 End: 02-03-2024 ambulatory DONAL MAO Not Available Start: 01-13-2024 End: 01-13-2024 ambulatory JAYLEN QUARLES Not Available Start: 12-25-2023 End: 12-25-2023 ambulatory YANELI A FELTER Not Available Start: 12-09-2023 End: 12-09-2023 ambulatory JAYLEN QUARLES Not Available Start: 11-13-2023 End: 11-13-2023 ambulatory YANELI A FELTER Not Available Start: 09-16-2023 End: 09-16-2023 ambulatory YANELI A FELTER Not Available Start: 08-29-2023 End: 08-29-2023 ambulatory Audra Trujillo Other [facility] [facility] Other Start: 08-29-2023 Office outpatient visit 25 minutes Audra Trujillo [facility] Start: 08-07-2023 End: 08-07-2023 ambulatory BUZZ MAGANA Not Available Start: 07-17-2023 End: 07-17-2023 ambulatory YANELI A FELTER Not Available Start: 06-03-2023 End: 06-03-2023 Patient encounter procedure KINJAL PEREIRA [facility] Start: 04-29-2023 End: 04-29-2023 ambulatory Audra Trujillo Other [facility] Other Start: 04-29-2023 Office outpatient visit 25 minutes Audra Trujillo [facility] Start: 11-27-2022 End: 11-27-2022 Patient encounter procedure KINJAL PEREIRA [facility] Start: 10-15-2022 End: 10-16-[address] BUZZ MAGANA Facility: Start: 10-03-2022 End: 10-04-[address] BUZZ MAGANA Facility:[facility] Start: 05-29-2022 End: 05-29-2022 Patient encounter procedure KINJAL PEREIRA [facility] Start: 02-19-2022 End: 02-19-2022 Patient encounter procedure Wiliam Taylor Jr. [facility] Start: 12-12-2021 End: 12-13-[address] BUZZ MAGANA Facility:[facility] Start: 08-29-2014 End: 08-29-2014 Telephone encounter Dao Pearl MD Work Phone: Gastroenterology Comment on above: Appointment Procedures Date Procedure Procedure Detail Performing Clinician Start: 08-18-2009 Operation on uvula Rocio jaye Taylor Jr. Start: 08-18-1953 Appendectomy Wiliam quiñonez Jr. Start: 08-18-1947 Tonsillectomy Wiliam brown Jr. Colonoscopy Wiliam Torres Plan of Treatment Date Care Activity Detail Author Start: 04-18-2021 Influenza vaccination INFLUENZA (Sea son Ended) [facility] Start: 05-24-2016 DIABETES SCREEN DIABETES SCREEN [facility] Start: 2006 ADVANCE DIRECTIVE DISCUSSION ADVANCE DIRECTIVE DISCUSSION [facility] Start: 2006 PNEUMOVAX AGE 65 AND OVER WITH 5YR LOOKBACK (#1) PNEUMOVAX AGE 65 AND OVER WITH 5YR LOOKBACK (#1) [facility] Start: 1991 Screening for malign ant neoplasm of colon [facility] Start: 1991 SHINGRIX VACCINE (1 of 2) MERAZ GRIX VACCINE (1 of 2) [facility] Start: 1960 Urine microalbumin profile DTAP,TDAP ,TD (1 - Tdap) [facility] Start: 1953 Adult depression scr eening assessment DEPRESSION SCREENING [facility] Edg us exam surgical alter stom duodenum/jejunum EGD EUS Endoscopy Routine Pancreatic lesion (HCC) 08/30/2014 [facility] Comment on above: 08/30/2014 Immunizations Immunization Date Immunization Notes Care Provider Sincere jiménez 02-09-2024 tetanus toxoid, redu clemente diphtheria toxoid, and acellular pertussis vaccine, adsorbed KINJAL KELLI [facility] 07-16-2023 influenza virus vaccine, unspecified formulation KINJAL KELLI [facility] 06-04-2022 SARS-CoV-2 (COVID-19 ) [id number] KINJAL KELLI [facility] 05-29-2022 influenza virus vaccine, unspecified formulation KINJAL KELLI [facility] 07-23-2021 influenza virus vaccine, unspecified formulation KINJAL KLELI [facility] 07-23-2021 SARS-CoV-2 (COVID-19 ) mRNA-1273 vaccine KINJAL KELLI [facility] 11-07-2020 SARS-CoV-2 (COVID-19 ) mRNA-1273 vaccine KINJAL KELLI [facility] 10-09-2020 SARS-CoV-2 (COVID-19 ) mRNA-1273 vaccine KINJAL KELLI [facility] 08-14-2020 pneumococcal conjuga te vaccine, 13 valent KINJAL KELLI [facility] 06-27-2020 influenza virus vaccine, unspecified formulation KINJAL KELLI [facility] 02-12-2020 zoster vaccine recombinant KINJAL PEREIRA [facility] 06-17-2019 influenza virus vaccine, unspecified formulation KINJAL PEREIRA [facility] 05-18-2018 influenza virus vaccine, unspecified formulation KINJAL PEREIRA [facility] 04-28-2017 influenza virus vaccine, unspecified formulation KINJAL PEREIRA [facility] 04-18-2017 influenza virus vaccine, unspecified formulation KINJAL PEREIRA [facility] 05-19-2015 pneumococcal conjuga te vaccine, 13 valent KINJAL PEREIRA [facility] Payers Date Payer Category Payer Medicare HUMANA MEDICARE HU[employer]NA MEDICARE PPO [id number] 2013-2015 PPO [id number] 1959 Medicare [id number] 1940 Unknown [id number] 2..840.1.034813.3.579. 2.593 1940 Unknown [id number] 2..840.1.691586.3.579. 2.593 1940 Unknown [id number] 2.16.840.1.641172.3.579. 2.593 1940 Unknown [id number] 2.16.840.1.432873.3.579. 2.1259 1940 Unknown [id number] 2.16.840.1.497837.3.579. 2.1259 1940 Unknown [id number] 2.16.840.1.006159.3.579. 2.1258 1940 Unknown [id number] 2.16.840.1.585421.3.579. 2.1258 1940 Unknown [id number] 2.16.840.1.858483.3.579. 2.1258 1940 Unknown [id number] 2.16.840.1.724543.3.579. 2.1258 1941 Unknown [id number] 2.16.840.1.718004.3.579. 2.1258 1941 Unknown [id number] 2.16.840.1.076375.3.579. 2.1258 1941 Unknown [id number] 2.16.840.1.440697.3.579. 2.1258 1941 Unknown [id number] 2.16.840.1.207725.3.579. 2.1258 1941 Unknown [id number] 2.16.840.1.900466.3.579. 2.1258 1941 Unknown [id number] 2.16.840.1.095067.3.579. 2.1258 1940 Unknown [id number] 2.16.840.1.985942.3.579. 2.1258 1941 Unknown [id number] 2.16.840.1.498217.3.579. 2.1258 1941 Unknown [id number] 2.16.840.1.887258.3.579. 2.1258 1941 Unknown [id number] 2.16.840.1.063188.3.579. 2.1258 1941 Unknown [id number] 2.16.840.1.159030.3.579. 2.1258 1940 Unknown [id number] 2.16.840.1.100655.3.579. 2.727 Private Health Insurance [employer] [facility] [id number] Self-pay Self Pay [id number] Social History Date Type Detail Facility Tobacco smoking stat us NHIS Unknown if ever smoked [facility] Start: 1940 Sex Assigned At Not on file C [facility] Start: 01-30-2021 End: 06-08-2024 Tobacco smoking status Never smoked tobacco (finding) [facility] Sex Assigned At Male [facility] Tobacco smoking status Never [facility] Start: 1940 Sex Assigned At Male F [facility] Medical Equipment Procedure Code Equipment Code Equipment Origin al Text Equipment Identifier Dates Repair, hernia, inguinal, with mesh [id number] FDA Start: 03-05-2021 Functional Status Date Assessment Result Facility 06-08-2024 Functional Status N/A [facility] 06-03-2023 Functional Status N/A [facility] 11-27-2022 Functional Status N/A [facility] 05-29-2022 Functional Status N/A [facility] Clinical Notes 09-09-2014 to 06-08-2024 Note Date & Type Note Facility 06-08-2024 Hospital Discharg e instructions Patient Education 06/08/2024 09:36:56 Transrectal Ultrasound Transrectal Ultrasound A transrectal ultrasound is a procedure that uses sound waves to create images of the prostate gland and nearby tissues. For this procedure, an ultrasound probe is placed in the rectum. The probe sends sound waves through the wall of the rectum into the prostate gland. The prostate is a walnut-sized gland that is located below the bladder and in front of the rectum. The images show the size and shape of the prostate gland and nearby structures. You may need this test if you have: Trouble urinating. Trouble getting your partner (infertility). An abnormal result from a prostate screening exam. Tell a health care provider about: Any allergies you have. All medicines you are taking, including vitamins, herbs, eye drops, creams, and kprt-nko-bhodfoo medicines. Any bleeding problems you have. Any surgeries you have had. Any medical conditions you have. Any prostate infections you have had. What are the risks? Generally, this is a safe procedure. However, problems may occur, including: Discomfort during the procedure. Blood in your urine or sperm after the procedure. This may occur if a sample of tissue is taken to look at under a microscope (biopsy) during the procedure. What happens before the procedure? Your health care provider may instruct you to use an enema 1 4 hours before the procedure. Follow instructions from your health care provider about how to do the enema. Ask your health care provider about: ?Changing or stopping your regular medicines. This is especially important if you are taking diabetes medicines or blood thinners. ?Taking medicines such as aspirin and ibuprofen. These medicines can thin your blood. Do not take these medicines unless your health care provider tells you to take them. ?Taking fdly-mzr-jtpmlqu medicines, vitamins, herbs, and supplements. What happens during the procedure? You will be asked to lie down on your left side on an exam table. You will bend your knees toward your chest. Gel will be put on a small probe that is about the width of a finger. The probe will be gently inserted into your rectum. You may have a feeling of fullness but should not feel pain. The probe will send signals to a computer that will create images. These will be displayed on a monitor that looks like a small television screen. The technician semiconductor development will slightly rotate the probe throughout the procedure. While rotating the probe, he or she will view and capture images of the prostate gland and the surrounding structures from different angles. Your health care provider may take a biopsy sample of prostate tissue during the procedure. The images captured from the ultrasound will help guide the needle that is used to remove a sample of tissue. The sample will be sent to a lab for testing. The probe will be removed. The procedure may vary among health care providers and hospitals. What can I expect after the procedure? It is up to you to get the results of your procedure. Ask your health care provider, or the department that is doing the procedure, when your results will be ready. Keep all follow-up visits. This is important. Summary A transrectal ultrasound is a procedure that uses sound waves to create images of the prostate gland and nearby tissues. The images show the size and shape of the prostate gland and nearby structures. Before the procedure, ask your health care provider about changing or stopping your regular medicines. This is especially important if you are taking diabetes medicines or blood thinners. This information is not intended to replace advice given to you by your health care provider. Make sure you discuss any questions you have with your health care provider. Document Revised: 04/17/2022 Document Reviewed: 01/28/2022 [employer] Patient Education 2023 [employer]. 06/08/2024 09:30:07 Transurethral Resection of the Prostate Transurethral Resection of the Prostate Transurethral resection of the prostate (TURP) is the removal, or resection, of part of the prostate tissue. This procedure is done to treat an enlarged prostate gland (benign prostatic hyperplasia). The goal of TURP is to remove enough prostate tissue to allow for a normal flow of urine. The procedure will allow you to empty your bladder more completely when you urinate so that you can urinate less often. In a transurethral resection, a thin telescope with a light, a camera, and an electric cutting edge (resectoscope) is passed through the urethra and into the prostate. The opening of the urethra is at the end of the penis. Tell a health care provider about: Any allergies you have. All medicines you are taking, including vitamins, herbs, eye drops, creams, and vhyz-zyb-fnddvyt medicines. Any problems you or family members have had with anesthetic medicines. Any bleeding problems you have. Any surgeries you have had. Any medical conditions you have. Any prostate infections you have had. What are the risks? Generally, this is a safe procedure. However, problems may occur, including: Infection. Bleeding. Allergic reactions to medicines. Blood in the urine (hematuria). Damage to nearby structures or organs. Other problems may occur, but they are rare. They include: Dry ejaculation, or having no semen come out during orgasm. Erectile dysfunction, or being unable to have or keep an erection. Scarring that leads to narrowing of the urethra. This narrowing may block the flow of urine. Inability to control when you urinate (incontinence). Deep vein thrombosis. This is a blood clot that can develop in your leg. TURP syndrome. This can happen when you lose too much sodium during or after the procedure. Some signs and symptoms of this condition include: ?Weakness. ?Headaches. ?Nausea or vomiting. ?Muscle cramping. What happens before the procedure? When to stop eating and drinking Follow instructions from your health care provider about what you may eat and drink before your procedure. These may include: 8 hours before your procedure ?Stop eating most foods. Do not eat meat, fried foods, or fatty foods. ?Eat only light foods, such as toast or crackers. ?All liquids are okay except energy drinks and alcohol. 6 hours before your procedure ?Stop eating. ?Drink only clear liquids, such as water, clear fruit juice, black coffee, plain tea, and sports drinks. ?Do not drink energy drinks or alcohol. 2 hours before your procedure ?Stop drinking all liquids. ?You may be allowed to take medicines with small sips of water. If you do not follow your health care provider's instructions, your procedure may be delayed or canceled. Medicines Ask your health care provider about: Changing or stopping your regular medicines. This is especially important if you are taking diabetes medicines or blood thinners. Taking medicines such as aspirin and ibuprofen. These medicines can thin your blood. Do not take these medicines unless your health care provider tells you to take them. Taking rmkg-jbl-quvuyyo medicines, vitamins, herbs, and supplements. Surgery safety Ask your health care provider what steps will be taken to help prevent infection. These steps may include: Removing hair at the surgery site. Washing skin with a germ-killing soap. Taking antibiotic medicine. General instructions Do not use any products that contain nicotine or tobacco for at least 4 weeks before the procedure. These products include cigarettes, chewing tobacco, and vaping devices, such as e-cigarettes. If you need help quitting, ask your health care provider. If you will be going home right after the procedure, plan to have a responsible adult: ?Take you home from the hospital or clinic. You will not be allowed to drive. ?Care for you for the time you are told. What happens during the procedure? An IV will be inserted into one of your veins. You will be given one or more of the following: ?A medicine to help you relax (sedative). ?A medicine to make you fall asleep (general anesthetic). ?A medicine that is injected into your spine to numb the area below and slightly above the injection site (spinal anesthetic). Your legs will be placed in foot rests (stirrups) so that your legs are apart and your knees are bent. The resectoscope will be passed through your urethra to your prostate. Parts of your prostate will be resected using the cutting edge of the resectoscope. Fluid will be passed to rinse out the cut tissues (irrigation). The resectoscope will be removed. A small, thin tube (catheter) will be passed through your urethra and into your bladder. The catheter will drain urine into a bag outside of your body. The procedure may vary among health care providers and hospitals. What happens after the procedure? Your blood pressure, heart rate, breathing rate, and blood oxygen level will be monitored until you leave the hospital or clinic. You will be given fluids through the IV. The IV will be removed when you start eating and drinking normally. You may have some pain. Pain medicine will be available to help you. You will have a catheter draining your urine. ?You may have blood in your urine. Your catheter may be kept in until your urine is clear. ?Your urinary drainage will be monitored. If necessary, your bladder may be rinsed out (irrigated) through your catheter. You will be encouraged to walk around as soon as possible. You may have to wear compression stockings. These stockings help to prevent blood clots and reduce swelling in your legs. If you were given a sedative during the procedure, it can affect you for several hours. Do not drive or operate machinery until your health care provider says that it is safe. Summary Transurethral resection of the prostate (TURP) is the removal (resection) of part of the prostate tissue. The goal of this procedure is to remove enough prostate tissue to allow for a normal flow of urine. Follow instructions from your health care provider about taking medicines and about eating and drinking before the procedure. This information is not intended to replace advice given to you by your health care provider. Make sure you discuss any questions you have with your health care provider. Document Revised: 04/30/2022 Document Reviewed: 04/30/2022 [employer] Patient Education 2023 [employer]. 06/08/2024 09:30:00 Cystoscopy Cystoscopy Cystoscopy is a procedure that is used to help diagnose and sometimes treat conditions that affect the lower urinary tract. The lower urinary tract includes the bladder and the urethra. The urethra is the tube that drains urine from the bladder. Cystoscopy is done using a thin, tube-shaped instrument with a light and camera at the end (cystoscope). The cystoscope may be hard or flexible, depending on the goal of the procedure. The cystoscope is inserted through the urethra, into the bladder. Cystoscopy may be recommended if you have: Urinary tract infections that keep coming back. Blood in the urine (hematuria). An inability to control when you urinate (urinary incontinence) or an overactive bladder. Unusual cells found in a urine sample. A blockage in the urethra, such as a urinary stone. Painful urination. An abnormality in the bladder found during an intravenous pyelogram (IVP) or CT scan. Cystoscopy may also be done to remove a sample of tissue to be examined under a microscope (biopsy). Tell a health care provider about: Any allergies you have. All medicines you are taking, including vitamins, herbs, eye drops, creams, and jcdc-kaa-szcngaw medicines. Any problems you or family members have had with anesthetic medicines. Any blood disorders you have. Any surgeries you have had. Any medical conditions you have. Whether you are or may be . What are the risks? Generally, this is a safe procedure. However, problems may occur, including: Infection. Bleeding. Allergic reactions to medicines. Damage to other structures or organs. What happens before the procedure? Medicines Ask your health care provider about: Changing or stopping your regular medicines. This is especially important if you are taking diabetes medicines or blood thinners. Taking medicines such as aspirin and ibuprofen. These medicines can thin your blood. Do not take these medicines unless your health care provider tells you to take them. Taking hznt-swe-wrguoig medicines, vitamins, herbs, and supplements. Tests You may have an exam or testing, such as: X-rays of the bladder, urethra, or kidneys. CT scan of the abdomen or pelvis. Urine tests to check for signs of infection. General instructions Follow instructions from your health care provider about eating or drinking restrictions. Ask your health care provider what steps will be taken to help prevent infection. These steps may include: ?Washing skin with a germ-killing soap. ?Taking antibiotic medicine. Plan to have a responsible adult take you home from the hospital or clinic. What happens during the procedure? You will be given one or more of the following: ?A medicine to help you relax (sedative). ?A medicine to numb the area (local anesthetic). The area around the opening of your urethra will be cleaned. The cystoscope will be passed through your urethra into your bladder. Germ-free (sterile) fluid will flow through the cystoscope to fill your bladder. The fluid will stretch your bladder so that your health care provider can clearly examine your bladder barajas. Your doctor will look at the urethra and bladder. Your doctor may take a biopsy or remove stones. The cystoscope will be removed, and your bladder will be emptied. The procedure may vary among health care providers and hospitals. What can I expect after the procedure? After the procedure, it is common to have: Some soreness or pain in your abdomen and urethra. Urinary symptoms. These include: ?Mild pain or burning when you urinate. Pain should stop within a few minutes after you urinate. This may last for up to 1 week. ?A small amount of blood in your urine for several days. ?Feeling like you need to urinate but producing only a small amount of urine. Follow these instructions at home: Medicines Take orbe-izb-stoozlq and prescription medicines only as told by your health care provider. If you were prescribed an antibiotic medicine, take it as told by your health care provider. Do not stop taking the antibiotic even if you start to feel better. General instructions Return to your normal activities as told by your health care provider. Ask your health care provider what activities are safe for you. If you were given a sedative during the procedure, it can affect you for several hours. Do not drive or operate machinery until your health care provider says that it is safe. Watch for any blood in your urine. If the amount of blood in your urine increases, call your health care provider. Follow instructions from your health care provider about eating or drinking restrictions. If a tissue sample was removed for testing (biopsy) during your procedure, it is up to you to get your test results. Ask your health care provider, or the department that is doing the test, when your results will be ready. Drink enough fluid to keep your urine pale yellow. Keep all follow-up visits. This is important. Contact a health care provider if: You have pain that gets worse or does not get better with medicine, especially pain when you urinate. You have trouble urinating. You have more blood in your urine. Get help right away if: You have blood clots in your urine. You have abdominal pain. You have a fever or chills. You are unable to urinate. Summary Cystoscopy is a procedure that is used to help diagnose and sometimes treat conditions that affect the lower urinary tract. Cystoscopy is done using a thin, tube-shaped instrument with a light and camera at the end. After the procedure, it is common to have some soreness or pain in your abdomen and urethra. Watch for any blood in your urine. If the amount of blood in your urine increases, call your health care provider. If you were prescribed an antibiotic medicine, take it as told by your health care provider. Do not stop taking the antibiotic even if you start to feel better. This information is not intended to replace advice given to you by your health care provider. Make sure you discuss any questions you have with your health care provider. Document Revised: 04/17/2022 Document Reviewed: 03/16/2021 [employer] Patient Education 2023 [employer]. Follow Up Care 06/03/2023 10:37:03 With:MARIA R GORMAN, BRANDAN, AMARIL Address: When: Unknown Comments:sched cysto, TRUS, and scrotal US [facility] 06-08-2024 Note Patient Education Radiology Transrectal Ultrasound A transrectal ultrasound is a procedure that uses sound waves to create images of the prostate gland and nearby tissues. For this procedure, an ultrasound probe is placed in the rectum. The probe sends sound waves through the wall of the rectum into the prostate gland. The prostate is a walnut-sized gland that is located below the bladder and in front of the rectum. The images show the size and shape of the prostate gland and nearby structures. You may need this test if you have: ? Trouble urinating. ? Trouble getting your partner (infertility). ? An abnormal result from a prostate screening exam. Tell a health care provider about: ? Any allergies you have. ? All medicines you are taking, including vitamins, herbs, eye drops, creams, and jemt-efv-fylrnrz medicines. ? Any bleeding problems you have. ? Any surgeries you have had. ? Any medical conditions you have. ? Any prostate infections you have had. What are the risks? Generally, this is a safe procedure. However, problems may occur, including: ? Discomfort during the procedure. ? Blood in your urine or sperm after the procedure. This may occur if a sample of tissue is taken to look at under a microscope (biopsy) during the procedure. What happens before the procedure? ? Your health care provider may instruct you to use an enema 1?4 hours before the procedure. Follow instructions from your health care provider about how to do the enema. ? Ask your health care provider about: ? Changing or stopping your regular medicines. This is especially important if you are taking diabetes medicines or blood thinners. ? Taking medicines such as aspirin and ibuprofen. These medicines can thin your blood. Do not take these medicines unless your health care provider tells you to take them. ? Taking sebf-vnc-mrdsydk medicines, vitamins, herbs, and supplements. What happens during the procedure? ? You will be asked to lie down on your left side on an exam table. ? You will bend your knees toward your chest. ? Gel will be put on a small probe that is about the width of a finger. The probe will be gently inserted into your rectum. You may have a feeling of fullness but should not feel pain. ? The probe will send signals to a computer that will create images. These will be displayed on a monitor that looks like a small television screen. ? The technician semiconductor development will slightly rotate the probe throughout the procedure. While rotating the probe, he or she will view and capture images of the prostate gland and the surrounding structures from different angles. ? Your health care provider may take a biopsy sample of prostate tissue during the procedure. The images captured from the ultrasound will help guide the needle that is used to remove a sample of tissue. The sample will be sent to a lab for testing. ? The probe will be removed. The procedure may vary among health care providers and hospitals. What can I expect after the procedure? ? It is up to you to get the results of your procedure. Ask your health care provider, or the department that is doing the procedure, when your results will be ready. ? Keep all follow-up visits. This is important. Summary ? A transrectal ultrasound is a procedure that uses sound waves to create images of the prostate gland and nearby tissues. ? The images show the size and shape of the prostate gland and nearby structures. ? Before the procedure, ask your health care provider about changing or stopping your regular medicines. This is especially important if you are taking diabetes medicines or blood thinners. This information is not intended to replace advice given to you by your health care provider. Make sure you discuss any questions you have with your health care provider. Document Revised: 04/17/2022 Document Reviewed: 01/28/2022 [employer] Patient Education ? 2023 [employer]. Urology Transurethral Resection of the Prostate Transurethral resection of the prostate (TURP) is the removal, or resection, of part of the prostate tissue. This procedure is done to treat an enlarged prostate gland (benign prostatic hyperplasia). The goal of TURP is to remove enough prostate tissue to allow for a normal flow of urine. The procedure will allow you to empty your bladder more completely when you urinate so that you can urinate less often. In a transurethral resection, a thin telescope with a light, a camera, and an electric cutting edge (resectoscope) is passed through the urethra and into the prostate. The opening of the urethra is at the end of the penis. Tell a health care provider about: ? Any allergies you have. ? All medicines you are taking, including vitamins, herbs, eye drops, creams, and koqf-lxc-ippqyap medicines. ? Any problems you or family members have had with anesthetic medicines. ? Any bleeding problems you have. ? Any surgeries you have had. ? (more content not included)... [facility] 08-29-2023 Evaluation note Encounter Date Diagnosis Assessment Notes Aug, Acute recurrent maxillary sinusitis (ICD-10 - J01.01) Patient declines/refus es COVID/Influenz a testing today in office. Discussed diagnosis with patient. Will today for bacterial sinusitis based on physical exam and duration of symptoms. Take antibiotic as prescribed, complete entire course of therapy even if symptoms resolve. Reviewed allergies and recent antibiotic use with patient. Advised patient to use rx of Nasocort daily to help prevent recurrent sinusitis. Symptoms do not improve, advised patient to call into office to get ENT referral. Encouraged supportive care as directed, push fluids and rest, Tylenol and/or Motrin as directed for discomfort/fev er, warm moist compress over sinuses several times a day, cool mist humidification , nasal saline spray as directed. Symptoms should improve in the next 3 days, if symptoms persist follow up with PCP. Immediate eval for warning s/sx as discussed. Patient verbalizes understanding and is agreeable to treatment plan [employer] Other 10-17-2023 Hospital Discharge instructions Patient Education 06/03/2023 10:21:17 Benign Prostatic Hyperplasia Benign Prostatic Hyperplasia Benign prostatic hyperplasia (BPH) is an enlarged prostate gland that is caused by the normal agingprocess. The prostate may get bigger as a man gets older. The condition is not caused by cancer. The prostate is a walnut-sized gland that is involved in the production of semen. It is located in front of the rectum and below the bladder. The bladder stores urine. The urethra carries stored urine ou t of the body. An enlarged prostate can press on the urethra. This can make it harder to pass urine. The buildup of urine in the bladder can cause infection. Back pressure and infection may progress to bladder damage and kidney (renal) failure. What are the causes? This condition is part of the normal aging process. However, not all men develop problems from thiscondition. If the prostate enlarges away from the urethra, urine flow will not be blocked. If it enlarges toward the urethra and compresses it, there will be problems passing urine. What increases the risk? This condition is more likely to develop in men older than 50 years. What are the signs or symptoms? Symptoms of this condition include: Getting up often during the night to urinate. Needing to urinate frequently during the day. Difficulty starting urine flow. Decrease in size and strength of your urine stream. Leaking (dribbling) after urinating. Inability to pass urine. This needs immediate treatment. Inability to completely empty your bladder. Pain when you pass urine. This is more common if there is also an infection. Urinary tract infection (UTI). How is this diagnosed? This condition is diagnosed based on your medical history, a physical exam, and your symptoms. Tests will also be done, such as: A post-void bladder scan. This measures any amount of urine that may remain in your bladder after you finish urinating. A digital rectal exam. In a rectal exam, your health care provider checks your prostate by putting a lubricated, gloved finger into your rectum to feel the back of your prostate gland. This exam detects the size of your gland and any abnormal lumps or growths. An exam of your urine (urinalysis). A prostate specific antigen (PSA) screening. This is a blood test used to screen for prostate cancer. An ultrasound. This test uses sound waves to electronically produce a picture of your prostate gland. Your health care provider may refer you to a specialist in kidney and prostate diseases (urologist). How is this treated? Once symptoms begin, your health care provider will monitor your condition (active surveillance or watchful waiting). Treatment for this condition will depend on the severity of your condition. Treatment may include: Observation and yearly exams. This may be the only treatment needed if your condition and symptoms are mild. Medicines to relieve your symptoms, including: ?Medicines to shrink the prostate. ?Medicines to relax the muscle of the prostate. Surgery in severe cases. Surgery may include: ?Prostatectomy. In this procedure, the prostate tissue is removed completely through an open incision or with a laparoscope or robotics. ?Transurethral resection of the prostate (TURP). In this procedure, a tool is inserted through the opening at the tip of the penis (urethra). It is used to cut away tissue of the inner core of the prostate. The pieces are removed through the same opening of the penis. This removes the blockage. ?Transurethral incision (TUIP). In this procedure, small cuts are made in the prostate. This lessens the prostate's pressure on the urethra. ?Transurethral microwave thermotherapy (TUMT). This procedure uses microwaves to create heat. The heat destroys and removes a small amount of prostate tissue. ?Transurethral needle ablation (TUNA). This procedure uses radio frequencies to destroy and remove a small amount of prostate tissue. ?Interstitial laser coagulation (ILC). This procedure uses a laser to destroy and remove a small amount of prostate tissue. ?Transurethral electrovaporization (TUVP). This procedure uses electrodes to destroy and remove a small amount of prostate tissue. ?Prostatic urethral lift. This procedure inserts an implant to push the lobes of the prostate away from the urethra. Follow these instructions at home: Take oehq-dvr-ssuzuqu and prescription medicines only as told by your health care provider. Monitor your symptoms for any changes. Contact your health care provider with any changes. Avoid drinking large amounts of liquid before going to bed or out in public. Avoid or reduce how much caffeine or alcohol you drink. Give yourself time when you urinate. Keep all follow-up visits. This is important. Contact a health care provider if: You have unexplained back pain. Your symptoms do not get better with treatment. You develop side effects from the medicine you are taking. Your urine becomes very dark or has a bad smell. Your lower abdomen becomes distended and you have trouble passing urine. Get help right away if: You have a fever or chills. You suddenly cannot urinate. You feel light-headed or very dizzy, or you faint. There are large amounts of blood or clots in your urine. Your urinary problems become hard to manage. You develop moderate to severe low back or flank pain. The flank is the side of your body between the ribs and the hip. These symptoms may be an emergency. Get help right away. Call 911. Do not wait to see if the symptoms will go away. Do not drive yourself to the hospital. Summary Benign prostatic hyperplasia (BPH) is an enlarged prostate that is caused by the normal aging process. It is not caused by cancer. An enlarged prostate can press on the urethra. This can make it hard to pass urine. This condition is more likely to develop in men older than 50 years. Get help right away if you suddenly cannot urinate. This information is not intended to replace advice given to you by your health care provider. Make sure you discuss any questions you have with your health care provider. Document Revised: 02/20/2022 Document Reviewed: 02/20/2022 [employer] Patient Education 2022 [employer]. Follow Up Care 05/29/2022 14:52:53 With:KINJAL PEREIRA PA-C, URL Address: [address] [place] [address] [phone] When: Unknown [facility] 09-12-2023 Evaluation note* Encounter Date Diagnosis Assessment Notes Treatment Notes Treatment Clinical Notes Apr, Acute non-recurrent sinusitis, unspecified location (ICD-10 - J01.90) Declines/refuses COVID testing at this time. Discussed diagnosis with patient. Will today for bacterial sinusitis based on physical exam and duration of symptoms. Take antibiotic as prescribed, complete entire course of therapy even if symptoms resolve. Requested Z-Andres, states that it works well for him. Reviewed allergies and recent antibiotic use with patient. Advised patient to take rx of prednisone as directed, OTC Flonase. Supportive care as directed, push fluids and rest, Tylenol as directed for discomfort/fever, warm moist compress over sinuses several times a day, cool mist humidification, nasal saline spray as directed. Symptoms should improve in the next 3 days, if symptoms persist follow up with PCP. Immediate eval for warning s/sx as discussed. Patient verbalizes understanding and is agreeable to treatment plan [facility] Other 04-12-2023 Hospital Discharge instructions Patient Education 11/27/2022 13:56:58 Benign Prostatic Hyperplasia Benign Prostatic Hyperplasia Benign prostatic hyperplasia (BPH) is an enlarged prostate gland that is caused by the normal agingprocess and not by cancer. The prostate is a walnut-sized gland that is involved in the production of semen. It is located in front of the rectum and below the bladder. The bladder stores urine and the urethra is the tube that carries the urine out of the body. The prostate may get bigger as a man gets older. An enlarged prostate can press on the urethra. This can make it harder to pass urine. The build-up of urine in the bladder can cause infection. Back pressure and infection may progress to bladder damage and kidney (renal) failure. What are the causes? This condition is part of a normal aging process. However, not all men develop problems from this condition. If the prostate enlarges away from the urethra, urine flow will not be blocked. If it enlarges toward the urethra and compresses it, there will be problems passing urine. What increases the risk? This condition is more likely to develop in men over the age of 50 years. What are the signs or symptoms? Symptoms of this condition include: Getting up often during the night to urinate. Needing to urinate frequently during the day. Difficulty starting urine flow. Decrease in size and strength of your urine stream. Leaking (dribbling) after urinating. Inability to pass urine. This needs immediate treatment. Inability to completely empty your bladder. Pain when you pass urine. This is more common if there is also an infection. Urinary tract infection (UTI). How is this diagnosed? This condition is diagnosed based on your medical history, a physical exam, and your symptoms. Tests will also be done, such as: A post-void bladder scan. This measures any amount of urine that may remain in your bladder after you finish urinating. A digital rectal exam. In a rectal exam, your health care provider checks your prostate by putting a lubricated, gloved finger into your rectum to feel the back of your prostate gland. This exam detects the size of your gland and any abnormal lumps or growths. An exam of your urine (urinalysis). A prostate specific antigen (PSA) screening. This is a blood test used to screen for prostate cancer. An ultrasound. This test uses sound waves to electronically produce a picture of your prostate gland. Your health care provider may refer you to a specialist in kidney and prostate diseases (urologist). How is this treated? Once symptoms begin, your health care provider will monitor your condition (active surveillance or watchful waiting). Treatment for this condition will depend on the severity of your condition. Treatment may include: Observation and yearly exams. This may be the only treatment needed if your condition and symptoms are mild. Medicines to relieve your symptoms, including: ?Medicines to shrink the prostate. ?Medicines to relax the muscle of the prostate. Surgery in severe cases. Surgery may include: ?Prostatectomy. In this procedure, the prostate tissue is removed completely through an open incision or with a laparoscope or robotics. ?Transurethral resection of the prostate (TURP). In this procedure, a tool is inserted through the opening at the tip of the penis (urethra). It is used to cut away tissue of the inner core of the prostate. The pieces are removed through the same opening of the penis. This removes the blockage. ?Transurethral incision (TUIP). In this procedure, small cuts are made in the prostate. This lessens the prostate's pressure on the urethra. ?Transurethral microwave thermotherapy (TUMT). This procedure uses microwaves to create heat. The heat destroys and removes a small amount of prostate tissue. ?Transurethral needle ablation (TUNA). This procedure uses radio frequencies to destroy and remove a small amount of prostate tissue. ?Interstitial laser coagulation (ILC). This procedure uses a laser to destroy and remove a small amount of prostate tissue. ?Transurethral electrovaporization (TUVP). This procedure uses electrodes to destroy and remove a small amount of prostate tissue. ?Prostatic urethral lift. This procedure inserts an implant to push the lobes of the prostate away from the urethra. Follow these instructions at home: Take zzsc-lub-kkxtkrc and prescription medicines only as told by your health care provider. Monitor your symptoms for any changes. Contact your health care provider with any changes. Avoid drinking large amounts of liquid before going to bed or out in public. Avoid or reduce how much caffeine or alcohol you drink. Give yourself time when you urinate. Keep all follow-up visits as told by your health care provider. This is important. Contact a health care provider if: You have unexplained back pain. Your symptoms do not get better with treatment. You develop side effects from the medicine you are taking. Your urine becomes very dark or has a bad smell. Your lower abdomen becomes distended and you have trouble passing your urine. Get help right away if: You have a fever or chills. You suddenly cannot urinate. You feel lightheaded, or very dizzy, or you faint. There are large amounts of blood or clots in the urine. Your urinary problems become hard to manage. You develop moderate to severe low back or flank pain. The flank is the side of your body between the ribs and the hip. These symptoms may represent a serious problem that is an emergency. Do not wait to see if the symptoms will go away. Get medical help right away. Call your local emergency services (911 in the [place] Do not drive yourself to the hospital. Summary Benign prostatic hyperplasia (BPH) is an enlarged prostate that is caused by the normal aging process and not by cancer. An enlarged prostate can press on the urethra. This can make it hard to pass urine. This condition is part of a normal aging process and is more likely to develop in men over the age of 50 years. Get help right away if you suddenly cannot urinate. This information is not intended to replace advice given to you by your health care provider. Make sure you discuss any questions you have with your health care provider. Document Released: 08/04/2006 Document Revised: 06/29/2019 Document Reviewed: 09/08/2017 [employer] Patient Education 2020 [employer] Follow Up Care 11/05/2022 14:21:04 With:KINJAL PEREIRA PA-C, LIBERT[facility] Address: [address] [place] [address] [phone] When:05/29/2023 [facility] 10-12-2022 Hospital Discharge instructions Patient Education 05/29/2022 14:47:45 Benign Prostatic Hyperplasia Benign Prostatic Hyperplasia Benign prostatic hyperplasia (BPH) is an enlarged prostate gland that is caused by the normal agingprocess and not by cancer. The prostate is a walnut-sized gland that is involved in the production of semen. It is located in front of the rectum and below the bladder. The bladder stores urine and the urethra is the tube that carries the urine out of the body. The prostate may get bigger as a man gets older. An enlarged prostate can press on the urethra. This can make it harder to pass urine. The build-up of urine in the bladder can cause infection. Back pressure and infection may progress to bladder damage and kidney (renal) failure. What are the causes? This condition is part of a normal aging process. However, not all men develop problems from this condition. If the prostate enlarges away from the urethra, urine flow will not be blocked. If it enlarges toward the urethra and compresses it, there will be problems passing urine. What increases the risk? This condition is more likely to develop in men over the age of 50 years. What are the signs or symptoms? Symptoms of this condition include: Getting up often during the night to urinate. Needing to urinate frequently during the day. Difficulty starting urine flow. Decrease in size and strength of your urine stream. Leaking (dribbling) after urinating. Inability to pass urine. This needs immediate treatment. Inability to completely empty your bladder. Pain when you pass urine. This is more common if there is also an infection. Urinary tract infection (UTI). How is this diagnosed? This condition is diagnosed based on your medical history, a physical exam, and your symptoms. Tests will also be done, such as: A post-void bladder scan. This measures any amount of urine that may remain in your bladder after you finish urinating. A digital rectal exam. In a rectal exam, your health care provider checks your prostate by putting a lubricated, gloved finger into your rectum to feel the back of your prostate gland. This exam detects the size of your gland and any abnormal lumps or growths. An exam of your urine (urinalysis). A prostate specific antigen (PSA) screening. This is a blood test used to screen for prostate cancer. An ultrasound. This test uses sound waves to electronically produce a picture of your prostate gland. Your health care provider may refer you to a specialist in kidney and prostate diseases (urologist). How is this treated? Once symptoms begin, your health care provider will monitor your condition (active surveillance or watchful waiting). Treatment for this condition will depend on the severity of your condition. Treatment may include: Observation and yearly exams. This may be the only treatment needed if your condition and symptoms are mild. Medicines to relieve your symptoms, including: ?Medicines to shrink the prostate. ?Medicines to relax the muscle of the prostate. Surgery in severe cases. Surgery may include: ?Prostatectomy. In this procedure, the prostate tissue is removed completely through an open incision or with a laparoscope or robotics. ?Transurethral resection of the prostate (TURP). In this procedure, a tool is inserted through the opening at the tip of the penis (urethra). It is used to cut away tissue of the inner core of the prostate. The pieces are removed through the same opening of the penis. This removes the blockage. ?Transurethral incision (TUIP). In this procedure, small cuts are made in the prostate. This lessens the prostate's pressure on the urethra. ?Transurethral microwave thermotherapy (TUMT). This procedure uses microwaves to create heat. The heat destroys and removes a small amount of prostate tissue. ?Transurethral needle ablation (TUNA). This procedure uses radio frequencies to destroy and remove a small amount of prostate tissue. ?Interstitial laser coagulation (ILC). This procedure uses a laser to destroy and remove a small amount of prostate tissue. ?Transurethral electrovaporization (TUVP). This procedure uses electrodes to destroy and remove a small amount of prostate tissue. ?Prostatic urethral lift. This procedure inserts an implant to push the lobes of the prostate away from the urethra. Follow these instructions at home: Take svbj-pkz-ecpiqmz and prescription medicines only as told by your health care provider. Monitor your symptoms for any changes. Contact your health care provider with any changes. Avoid drinking large amounts of liquid before going to bed or out in public. Avoid or reduce how much caffeine or alcohol you drink. Give yourself time when you urinate. Keep all follow-up visits as told by your health care provider. This is important. Contact a health care provider if: You have unexplained back pain. Your symptoms do not get better with treatment. You develop side effects from the medicine you are taking. Your urine becomes very dark or has a bad smell. Your lower abdomen becomes distended and you have trouble passing your urine. Get help right away if: You have a fever or chills. You suddenly cannot urinate. You feel lightheaded, or very dizzy, or you faint. There are large amounts of blood or clots in the urine. Your urinary problems become hard to manage. You develop moderate to severe low back or flank pain. The flank is the side of your body between the ribs and the hip. These symptoms may represent a serious problem that is an emergency. Do not wait to see if the symptoms will go away. Get medical help right away. Call your local emergency services (911 in the [place] Do not drive yourself to the hospital. Summary Benign prostatic hyperplasia (BPH) is an enlarged prostate that is caused by the normal aging process and not by cancer. An enlarged prostate can press on the urethra. This can make it hard to pass urine. This condition is part of a normal aging process and is more likely to develop in men over the age of 50 years. Get help right away if you suddenly cannot urinate. This information is not intended to replace advice given to you by your health care provider. Make sure you discuss any questions you have with your health care provider. Document Released: 08/04/2006 Document Revised: 06/29/2019 Document Reviewed: 09/08/2017 Elsevier Patient Education 2020 [employer]. Follow Up Care 04/02/2022 12:50:37 With:KINJAL PEREIRA PA-C, URL Address: [address] [address] [phone] When:05/29/2023 [facility] 07-05-2022 Hospital Discharge instructions Patient Education 02/19/2022 12:42:08 Benign Prostatic Hyperplasia Benign Prostatic Hyperplasia Benign prostatic hyperplasia (BPH) is an enlarged prostate gland that is caused by the normal agingprocess and not by cancer. The prostate is a walnut-sized gland that is involved in the production of semen. It is located in front of the rectum and below the bladder. The bladder stores urine and the urethra is the tube that carries the urine out of the body. The prostate may get bigger as a man gets older. An enlarged prostate can press on the urethra. This can make it harder to pass urine. The build-up of urine in the bladder can cause infection. Back pressure and infection may progress to bladder damage and kidney (renal) failure. What are the causes? This condition is part of a normal aging process. However, not all men develop problems from this condition. If the prostate enlarges away from the urethra, urine flow will not be blocked. If it enlarges toward the urethra and compresses it, there will be problems passing urine. What increases the risk? This condition is more likely to develop in men over the age of 50 years. What are the signs or symptoms? Symptoms of this condition include: Getting up often during the night to urinate. Needing to urinate frequently during the day. Difficulty starting urine flow. Decrease in size and strength of your urine stream. Leaking (dribbling) after urinating. Inability to pass urine. This needs immediate treatment. Inability to completely empty your bladder. Pain when you pass urine. This is more common if there is also an infection. Urinary tract infection (UTI). How is this diagnosed? This condition is diagnosed based on your medical history, a physical exam, and your symptoms. Tests will also be done, such as: A post-void bladder scan. This measures any amount of urine that may remain in your bladder after you finish urinating. A digital rectal exam. In a rectal exam, your health care provider checks your prostate by putting a lubricated, gloved finger into your rectum to feel the back of your prostate gland. This exam detects the size of your gland and any abnormal lumps or growths. An exam of your urine (urinalysis). A prostate specific antigen (PSA) screening. This is a blood test used to screen for prostate cancer. An ultrasound. This test uses sound waves to electronically produce a picture of your prostate gland. Your health care provider may refer you to a specialist in kidney and prostate diseases (urologist). How is this treated? Once symptoms begin, your health care provider will monitor your condition (active surveillance or watchful waiting). Treatment for this condition will depend on the severity of your condition. Treatment may include: Observation and yearly exams. This may be the only treatment needed if your condition and symptoms are mild. Medicines to relieve your symptoms, including: ?Medicines to shrink the prostate. ?Medicines to relax the muscle of the prostate. Surgery in severe cases. Surgery may include: ?Prostatectomy. In this procedure, the prostate tissue is removed completely through an open incision or with a laparoscope or robotics. ?Transurethral resection of the prostate (TURP). In this procedure, a tool is inserted through the opening at the tip of the penis (urethra). It is used to cut away tissue of the inner core of the prostate. The pieces are removed through the same opening of the penis. This removes the blockage. ?Transurethral incision (TUIP). In this procedure, small cuts are made in the prostate. This lessens the prostate's pressure on the urethra. ?Transurethral microwave thermotherapy (TUMT). This procedure uses microwaves to create heat. The heat destroys and removes a small amount of prostate tissue. ?Transurethral needle ablation (TUNA). This procedure uses radio frequencies to destroy and remove a small amount of prostate tissue. ?Interstitial laser coagulation (ILC). This procedure uses a laser to destroy and remove a small amount of prostate tissue. ?Transurethral electrovaporization (TUVP). This procedure uses electrodes to destroy and remove a small amount of prostate tissue. ?Prostatic urethral lift. This procedure inserts an implant to push the lobes of the prostate away from the urethra. Follow these instructions at home: Take oloa-bqt-zenacrt and prescription medicines only as told by your health care provider. Monitor your symptoms for any changes. Contact your health care provider with any changes. Avoid drinking large amounts of liquid before going to bed or out in public. Avoid or reduce how much caffeine or alcohol you drink. Give yourself time when you urinate. Keep all follow-up visits as told by your health care provider. This is important. Contact a health care provider if: You have unexplained back pain. Your symptoms do not get better with treatment. You develop side effects from the medicine you are taking. Your urine becomes very dark or has a bad smell. Your lower abdomen becomes distended and you have trouble passing your urine. Get help right away if: You have a fever or chills. You suddenly cannot urinate. You feel lightheaded, or very dizzy, or you faint. There are large amounts of blood or clots in the urine. Your urinary problems become hard to manage. You develop moderate to severe low back or flank pain. The flank is the side of your body between the ribs and the hip. These symptoms may represent a serious problem that is an emergency. Do not wait to see if the symptoms will go away. Get medical help right away. Call your local emergency services (911 in the [place] Do not drive yourself to the hospital. Summary Benign prostatic hyperplasia (BPH) is an enlarged prostate that is caused by the normal aging process and not by cancer. An enlarged prostate can press on the urethra. This can make it hard to pass urine. This condition is part of a normal aging process and is more likely to develop in men over the age of 50 years. Get help right away if you suddenly cannot urinate. This information is not intended to replace advice given to you by your health care provider. Make sure you discuss any questions you have with your health care provider. Document Released: 08/04/2006 Document Revised: 06/29/2019 Document Reviewed: 09/08/2017 [employer] Patient Education 2020 [employer]. Follow Up Care 01/30/2021 14:29:20 With:Brandon Buchanan MD, CANDE Mcintyre Address: [facility] [address], [place] [address] [phone] When:04/02/2022 [facility] 01-23-2015 Miscellaneous Notes* Telephone Encounter - Mirna Posada - 09/09/2014 10:17 AM EST Spoke with patient, he is going to call [facility] and set this appoinmet up for himself. * Telephone Encounter - Romel Seaman LPN - 09/05/2014 10:20 AM EST Please arrange at [facility] main * Telephone Encounter - Elva Yan Ma - 08/30/2014 8:13 AM EST Order placed. Please file and send information to 's office in [place]. * Telephone Encounter - Dao Pearl - 08/29/2014 4:05 PM EST Please do the EUS for the pancreatic tail [facility] Future Appointments Appointment Date:04/02/2022 11:30:00 AM Scheduled Provider:Wiliam Taylor Jr., MD Location:[facility] Appointment Type:URO Office Visit [facility] evaluation + Plan note Future Appointments Appointment Date:06/03/2023 10:15:00 AM Scheduled Provider:Wiliam Taylor Jr., MD Location:[facility] Appointment Type:URO Office Visit [facility] evaluation + Plan note Future Appointments Appointment Date:06/03/2023 10:00:00 AM Scheduled Provider:KINJAL PEREIRA PA-C Location:[facility] Appointment Type:URO Office Visit [facility] evaluation + Plan note Future Appointments Appointment Date:06/08/2024 08:30:00 AM Scheduled Provider:KINJAL PEREIRA PA-C Location:[facility] Appointment Type:URO Office Visit [facility] evaluation note* Diagnosis 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 Work Phone: [facility] Narrative - Reported* Type Description Date Medical History seizures Medical History hypothyroid Surgical History APPENDECTOMY Hospitalization History facial pain/headaches [facility] Com[facility] Zones Other [facility] Narrative - Reported* Type Description Date Medical History seizures Medical History hypothyroid Medical History Hypercholesterolemia Medical History Anxiety Medical History Sleep apnea Surgical History APPENDECTOMY Surgical History tonsillectomy Surgical History hernia repair Surgical History Uvulopalatopharyngoplasty Hospitalization History facial pain/headaches [facility] Home Comfort [facility] Other Hospital course Narrative No data available for this section [facility] progress note No data available for this section [facility] Summary Purpose Family History No Family History Records Found Relationship Condition Age at Onset Recorded Date/T juani father Accident Unknown mother Malignant neoplasm Unknown Heart disease Unknown Diabetes mellitus Unknown father Unknown mother Unknown Advance Directives No Advanced Directives Records Found Advance Directive Response Recorded Date/ Time Advance Directives No February 20 0 11:31am Chief Complaint and Reason for Visit Chief Complaint Cough, congestion, s ore throat Reason for Visit Maxillary sinusitis, acute Additional Source Comments Source Comments (unrecognize d section and content) In the event this informatio n is protected by the Federal Confidentiality of Alcohol and Drug Abuse Patient Records regulations: The Federal rules restrict any use of the information to criminally investigate or prosecute any alcohol or drug abuse patient.[facility] Reason for Visit (unrecogniz ed section and content) Reason Onset Date Comments Appointment 08/29/2014 (unrecognized sect ion and content) No Status Records FoundNo Status Records FoundNo Status Records FoundNo Status Records Found INFORMATION SOURCE (unrecogn ized section and content) DATE CREATED AUTHOR 10/07/2021 [facility] DATE CREATED AUTHOR AUTHOR'S ORGANIZ ATION 10/22/2022 [facility] DATE CREATED AUTHOR AUTHOR'S ORGANIZ ATION 05/05/2024 [facility] EPIC DATE CREATED AUTHOR AUTHOR'S ORGANIZ ATION 06/10/2024 Kamran Linares [facility] Care Team (unrecognized sect ion and content) Team Status: Active Member Role Status Dates Buzz Magana II MD Primary Care Provider Active Team Status: Inactive Member Role Status Dates Buzz Magana II MD Primary Care Provider Active Start: May 21, 2024 End: May 21, 2024 Norah Wills APRN Attending Provider Active Start: May 21, 2024 End: May 21, 2024 Goals (unrecognized section and content) Goals may be documented in a n alternate section FOR RECORDS PERTAINING TO PATIENTS WHO ARE OR HAVE BEEN ENROLLED IN A CHEMICAL DEPENDENCY/SUBSTANCEABUSE PROGRAM, SOME INFORMATION MAY BE OMITTED. This clinical summary was aggregated from multiple sources. Caution should be exercised in using it in the provision of clinical care. This summary normalizes information from multiple sources, and as a consequence, information in this document may materially change the coding, format and clinical context of patient data. In addition, data may be omitted in some cases. CLINICAL DECISIONS SHOULD BE BASED ON THE PRIMARY CLINICAL RECORDS. [employer] provides no warranty or guarantee of the accuracy or completeness of information in this document.
== END 2024-06-11 12:55 | disposition home or self-care (01) ==
LOC: RAD 12:54
PROVIDERS: PCP Internal Medicine; Visit Provider Internal Medicine
DX: Z00.00 Encounter for general adult medical examination without abnormal findings (principal); Z09 Encounter for follow-up examination after completed treatment for conditions other than malignant neoplasm; M85.88 Other specified disorders of bone density and structure, other site
CPT/HCPCS: 77080